=== PATIENT | male | born 1995 | race Caucasian/White ===

== ENCOUNTER 2023-06-07 11:30 | Emergency (ER) | payer SELFPAY ==
[2023-06-07 11:38] VITALS: BP 160/103; PULSE 71; RESP 18; TEMP 36.7; O2SAT 99; BMI 39.0
--- NOTE | 2023-06-07 11:51 | CRLHL7_ITS ---
For Patients: As a result of the Century Cures Act, medical imaging exams and procedure reports are released immediately into your electronic medical record. You may view this report before your referring provider. If you have questions, please contact your health care provider. Indication: Left lower quadrant pain, history of diverticulitis Technique: Volumetric multidetector CT images of the abdomen and pelvis were without the administration of intravenous contrast. Comparison: None available. Findings: The lung bases are clear. The liver is mildly prominence with hepatic steatosis and hepatomegaly. There is prior cholecystectomy. There is no significant common biliary ductal dilatation or abrupt cut off. The spleen is normal in attenuation and size. The stomach and duodenum are grossly unremarkable. The pancreas is normal in attenuation without significant atrophy. The adrenal glands are unremarkable. There is no evidence of radiopaque calculus or hydronephrosis. There is moderate stool seen throughout the colon with distal colonic diverticulosis. There is a decompressed appearance of the colon without overt pericolonic inflammation. Moderate to severe stool seen within the rectal vault. There is prior appendectomy. There is no significant mesenteric, retroperitoneal, or pelvic sidewall lymph nodes. The aorta is nonaneurysmal. There is no significant atherosclerotic disease appreciated. The solid pelvic viscera are grossly unremarkable. There is no free fluid or free air. There is mild diastasis of the rectus musculature. The lumbar vertebral body heights are grossly maintained in satisfactory alignment without evidence of displaced fracture, lytic or blastic lesion. Impression: Somewhat decompressed appearance of the colon with minimal colonic diverticulosis. No overt pericolonic inflammation is identified. Low-grade inflammatory changes are not entirely excluded. Otherwise, no acute intra-abdominal abnormality is appreciated. Moderate hepatomegaly and hepatic steatosis. Prior cholecystectomy and appendectomy. Please note that all CT scans at this facility use dose modulation, iterative reconstruction, and/or weight-based dosing when appropriate to reduce radiation dose to as low as reasonably achievable. Dictated by Moises Love MD @ 06/07/2023 1:30:24 PM (Electronically Signed)
--- NOTE | 2023-06-07 11:52 | ED_ITS ---
HPI - Abdominal Pain General Chief Complaint: Abdominal Pain Stated Complaint: abdominal pain-congested Time Seen by Provider: 06/07/23 11:41 History of Present Illness HPI narrative: This 27-year-old male comes in reporting left lower quadrant abdominal pain over the past 3 days or so. He states that it is a constant pain and worse with movement or taking a deep breath. He does report a history of diverticulitis about 8 months ago but states that he did not have much pain at the time that this was diagnosed. He did have a CT scan at that time with IV contrast. The contrast did cause some anaphylaxis symptoms. He also reports another CT scan about 5 months ago when he had his gallbladder removed. He states that his stools have seemed a little black. He does not report any blood in the toilet. He he has not had any fevers. Related Data Home Medications Medication Instructions Recorded Confirmed No Known Home Medications 06/07/23 06/07/23 Previous Rx's Medication Instructions Recorded ciprofloxacin HCl 500 mg tablet 500 mg PO BID #14 tabs 06/07/23 (Cipro) hydrocodone 5 mg-acetaminophen 325 1 tab PO Q4-6H PRN pain #15 tabs 06/07/23 mg tablet metronidazole 500 mg tablet 500 mg PO BID 10 days #14 tabs 06/07/23 ondansetron HCl 4 mg tablet 4 mg PO Q6H #15 tabs 06/07/23 Allergies Allergy/AdvReac Type Severity Reaction Status Date / Time Iodinated Contrast Media Allergy Severe Anaphylaxis Verified 06/07/23 11:38 Review of Systems Status of ROS Reports: 10 or more systems reviewed and unremarkable except as noted in History and below Narrative Constitutional: No fevers, no weight gain or loss. Eyes: No discharge. No vision changes. HENT: No congestion, no sore throat, no ear pain. Cardiovascular: No chest pain, no palpitations. Respiratory: No shortness of breath, no wheezes, no cough. Gastrointestinal: No vomiting, no diarrhea. Left lower quadrant abdominal pain. Genitourinary: No dysuria, no hematuria. Musculoskeletal: Normal range of motion. Skin: No rashes, no pruritis. Neurological: No dizziness, weakness, sensory change, speech change. Endo/Heme/Allergies: No bruising or bleeding. No polydipsia. Pysch: no suicidality, no anxiety, no insomnia. All other systems reviewed and are negative. Exam Narrative: Exam Narrative: Constitutional: Well-developed, well-nourished, no acute distress. HEENT: Normocephalic, atraumatic. Neck: Normal range of motion. Nontender. Supple. Heart: Regular. No murmurs. Normal rate. Intact distal pulses. Lungs: Clear to auscultation. No chest discomfort. No wheezes, rhonchi, or rales. Abdomen: Normal bowel sounds. Tenderness in the left lower quadrant. Rebound tenderness is present. Genitalia: Deferred. Back: No midline tenderness. Normal range of motion. Extremities: Normal range of motion. No injury. Skin: Intact. No rash. Warm. No erythema or pallor. Neurologic: No altered sensation. No weakness. Alert and oriented. Psychiatric: No suicidality. No anxiety or depression. No insomnia. Nursing notes and vitals signs are reviewed. Const: Vital Signs, click to edit/add: Vital Signs - 24 hr 06/07/23 11:38 Temperature 98.1 F Pulse Rate [Pulse Oximeter] 71 Respiratory Rate 18 [facility] 160/103 H Pulse Oximetry 99 Oxygen Delivery Me thod Room Air Course Vital Signs Vital signs: Initial Vital Signs Temperature 98.1 F 06/07/23 11:38 Temperature Source Temporal Artery Scan 06/07/23 11:38 Pulse Rate 71 06/07/23 11:38 Respiratory Rate 18 06/07/23 11:38 Blood Pressure 160/103 H 06/07/23 11:38 Blood Pressure Mean 122 H 06/07/23 11:38 Blood Pressure Position Sitting 06/07/23 11:38 Pulse Oximetry 99 06/07/23 11:38 Oxygen Delivery Method Room Air 06/07/23 11:38 Vital Signs Temperature 98.1 F 06/07/23 11:38 Pulse Rate 71 06/07/23 11:38 Respiratory Rate 18 06/07/23 11:38 Blood Pressure 160/103 H 06/07/23 11:38 Pulse Oximetry 99 06/07/23 11:38 Oxygen Delivery Method Room Air 06/07/23 11:38 Temperature 98.1 F 06/07/23 11:38 Pulse Rate 71 06/07/23 11:38 Respiratory Rate 18 06/07/23 11:38 Blood Pressure 160/103 H 06/07/23 11:38 Pulse Oximetry 99 06/07/23 11:38 Oxygen Delivery Method Room Air 06/07/23 11:38 MDM - Abdominal Pain MDM Narrative Medical decision making narrative: This patient comes in with pain in the left lower quadrant that is rather severe such that he states that he did not sleep well last night. He states that it is the worst pain he has ever head. He does have a history of diverticulitis and his symptoms are suspicious for recurrence. An IV was established and labs are acquired. CT imaging without contrast is obtained as the patient reports a reaction to contrast in the past. CT imaging shows evidence of diverticulosis but no diverticulitis. Additionally lab results returned with reassuring findings. The patient received Dilaudid 0.5 mg and Zofran 4 mg which brought relief to the nausea but not to the pain. A 2nd similar dose of Dilaudid was administered which again did not bring much relief. Patient then received Toradol 30 mg and finely ketamine 20 mg intravenously. The ketamine brought the best relief to his pain. I did discuss these matters with the surgeon on-call as the patient has lots of pain but there are no significant findings on CT to explain his symptoms. I did discuss other causes of abdominal pain that are not observed on CT imaging and would not trigger abnormalities in blood tests. The patient is okay to return home and did received prescriptions for Lynn, Zofran, and Cipro and Flagyl in the off chance that there is an infectious component to his abdominal pain. I did describe signs and symptoms that would indicate a need for return and re-evaluation. Lab Data Labs: Lab Results 06/07/23 06/07/23 Range/Units 11:43 12:17 WBC 5.42 (4.50-11.00) K/uL RBC 4.78 (4.30-5.90) m/uL Hgb 14.4 (13.5-17.5) gm/dL Hct 43.2 (37.0-53.0) % MCV 90 (80-100) fL MCH 30 (26-34) pg MCHC 33 (32-36) gm/dL RDW Coeff of Mahi 13.1 (11.5-15.5) % Plt Count 224 (140-440) K/uL Neut % (Auto) 66.4 (42.0-72.0) % Lymph % (Auto) 23.2 (20-44) % [place] % (Auto) 8.7 (0.0-11.0) % Eos % (Auto) 0.9 (0.0-7.0) % Baso % (Auto) 0.6 (0.0-3.0) % Neut # (Auto) 3.60 (1.7-7.0) K/uL Lymph # (Auto) 1.26 (0.90-2.90) K/uL [place] # (Auto) 0.50 (0.00-0.90) K/UL Eos # (Auto) 0.05 (0.00-0.50) K/uL Baso # (Auto) 0.03 (0.00-0.30) K/uL Abs Immat Gran (auto) 0.01 (0.00-0.30) K/uL Imm/Tot Granulo (auto) 0.2 % Sodium 139 (135-149) mmol/L Potassium 4.4 (3.6-5.1) mmol/L Chloride 102 (96-114) mmol/L Carbon Dioxide 27 (20-32) mmol/L Anion Gap 10 (7-15) mEq/L BUN 13 (5-24) mg/dL Creatinine 0.8 (0.5-1.5) mg/dL Estimated Creat Clear 168.78 Estimated GFR 124 ml/min Glucose 103 (60-115) mg/dL Calcium 9.5 (8.4-10.6) mg/dL SARS-CoV-2 (PCR) Negative SARS-CoV-2 (Negative) Influenza Type A (PCR) Negative PCR FLU A (Negative) Influenza Type B (PCR) Negative PCR FLU B (Negative) Imaging Data CT scan - abdomen: Radiologist's impression: Somewhat decompressed appearance of the colon with minimal colonic diverticulosis. No overt pericolonic inflammation is identified. Low-grade inflammatory changes are not entirely excluded. Otherwise, no acute intra-abdominal abnormality is appreciated. Moderate hepatomegaly and hepatic steatosis. Prior cholecystectomy and appendectomy. Discharge Plan Discharge Clinical Impression: Abdominal pain Patient Disposition: Home, Self-Care Condition: Stable Additional Instructions: Take medication as needed and indicated. Follow up with MD or return if symptoms are persistent or worsening. Prescriptions: New hydrocodone-acetaminophen 5-325 mg tablet 1 tab PO Q4-6H PRN (Reason: pain) Qty: 15 0RF ondansetron HCl 4 mg tablet 4 mg PO Q6H Qty: 15 0RF metronidazole 500 mg tablet 500 mg PO BID 10 Days Qty: 14 0RF ciprofloxacin HCl [Cipro] 500 mg tablet 500 mg PO BID Qty: 14 0RF No Action No Known Home Medications Follow Up/Referrals: Provider,Not a Local [Primary Care Provider] - Stand Alone Forms: [employer] [facility] Info Instructions
[2023-06-07] MEDS: HYDROmorphone 0.5 mg/0.5 ml inj IVP ×2 (12:21→13:34)
[2023-06-07] MEDS: ONDANSETRON 2 MG/ML inj 4 MG IVP (12:21)
[2023-06-07 12:25] LABS: Basophils Absolute Auto 0.03 K/uL (0.00-0.30); Basophils Percent Auto 0.6 % (0.0-3.0); Eosinophils Absolute Auto 0.05 K/uL (0.00-0.50); Eosinophils Percent Auto 0.9 % (0.0-7.0); Hematocrit 43.2 % (37.0-53.0); Hemoglobin* 14.4 gm/dL (13.5-17.5); Immature Granulocytes Abs Auto 0.01 K/uL (0.00-0.30); Immature Granulocytes Pct Auto 0.2 %; Lymphocytes Absolute Auto 1.26 K/uL (0.90-2.90); Lymphocytes Percent Auto 23.2 % (20-44); Mean Corpuscular HGB Conc 33 gm/dL (32-36); Mean Corpuscular Hemoglobin 30 pg (26-34); Mean Corpuscular Volume 90 fL (80-100); Monocytes Percent Auto 8.7 % (0.0-11.0); Neutrophils Percent Auto 66.4 % (42.0-72.0); Platelet Count* 224 K/uL (140-440); RDW Coefficient of Variation % 13.1 % (11.5-15.5); Red Blood Count 4.78 m/uL (4.30-5.90); Slide Review Reflex No; White Blood Count* 5.42 K/uL (4.50-11.00)
[2023-06-07 12:30] LABS: PCR FLU A Negative PCR FLU A (Negative); PCR FLU B Negative PCR FLU B (Negative)
[2023-06-07 12:36] LABS: SARS PCR* Negative SARS-CoV-2 (Negative)
[2023-06-07 12:59] LABS: Chloride* 102 mmol/L (96-114); Potassium* 4.4 mmol/L (3.6-5.1); Sodium* 139 mmol/L (135-149)
[2023-06-07 13:02] LABS: Anion Gap 10 mEq/L (7-15); Blood Urea Nitrogen* 13 mg/dL (5-24); Calcium* 9.5 mg/dL (8.4-10.6); Carbon Dioxide* 27 mmol/L (20-32); Creatinine* 0.8 mg/dL (0.5-1.5); Est. Creatinine Clearance* 168.78; Estimated Glomerular Filt Rate 124 ml/min; Glucose* 103 mg/dL (60-115)
[2023-06-07] MEDS: KETOROLAC 30 MG/ML inj IVP (14:34)
[2023-06-07] MEDS: KETAMINE HCL 20 MG in 0.9 % SODIUM CHLORIDE 100 ml 100 ML 300.6 MG IVPB (15:00)
== END 2023-06-07 16:22 | disposition home or self-care (01) ==
PROVIDERS: Emergency Provider Emergency Medicine Emergency Medical Services
DX: R10.9 Unspecified abdominal pain (principal)
CPT/HCPCS: 36415; 74176; 80048; 85025; 87631; 96374; 96375; 99284; J1170; J1885; J2405; J3490